=== PATIENT | male | born 1955 | race Caucasian/White ===

== ENCOUNTER 2016-10-23 11:39 | Emergency (ER) | payer OTHER ==
[~2016-10-23] VITALS: Ht 157.5 cm; Wt 78.0 kg
[2016-10-23 11:41] VITALS: Ht 157.5 cm; Wt 78.0 kg
--- NOTE | 2016-10-23 13:26 | RADRPT ---
PROCEDURE: XR Ankle. CLINICAL INDICATION: Left ankle series TECHNIQUE: AP, oblique, and lateral views of the left ankle were performed. COMPARISON: None available FINDINGS: Mild soft tissue swelling is noted at the lateral malleolus. No radiodense foreign bodies are presen t . No acute fractures or dislocations are present. Normal mineralization and joint spaces are noted. Mild calcaneal spur is noted at the Achilles tendon insertion. IMPRESSION: 1. No acute fractures or dislocations. 2. Soft tissue swelling of the lateral malleolus without radiodense foreign bodies. RPTAT: HDC .Rafaela Abdullahi MD, Date Time Electronically viewed and signed by .Rafaela Abdullahi MD, on 10/23/2016 13:25 .C/
--- NOTE | 2016-10-23 13:27 | RADRPT ---
PROCEDURE: Left foot series CLINICAL INDICATION: Pain status post trauma TECHNIQUE: AP oblique and lateral views COMPARISON: None available FINDINGS: No acute fractures or dislocations are present. Calcaneal spurs at the Achilles tendon insertion. Normal mineralization and joint spaces are noted. No evidence for radiodense foreign bodies. IMPRESSION: 1. No acute fractures or dislocations. 2. Calcaneal spur at the Achilles tendon insertion. RPTAT: HDC .Rafaela Abdullahi MD, Date Time Electronically viewed and signed by .Rafaela Abdullahi MD, on 10/23/2016 13:27 .C/
[2016-10-23] MEDS ORDERED: IBUP-1542 PO (13:32)
--- NOTE | 2016-10-23 13:37 | ERD ---
ER Documentation Chief Complaint Date/Time DATE: 10/23/16 TIME: 13:35 Chief Complaint LEFT ANKLE PAIN HPI 61-year-old male complains of left ankle pain after twisting it walking yesterday. He has some minor pain and swelling. He is concerned because he noticed some bruising around his foot today. He has no restricted range of motion weakness no redness or fevers. ROS All systems reviewed and are negative except as per history of present illness. 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 Head: Atraumatic Eyes: Normal Conjunctiva ENT: Normal External Ears, Nose and Mouth. Neck: Full range of motion..~ No meningismus. Resp: Clear to auscultation bilaterally Cardio: Regular rate and rhythm, no murmurs Abd: Soft, non tender, non distended. Normal bowel sounds Skin: No petechiae or rashes Back: No midline or flank tenderness Ext: No cyanosis, or edema. There is some mild tenderness and swelling around the left ankle joint. There is some ecchymosis on the bilateral lateral aspects of the foot as well as extending to the second through fifth metatarsal phalangeal joint area. There is no erythema or warmth or restricted range of motion appreciated. Neur: Awake and alert Psych: Normal Mood and Affect Procedures/MDM X-ray left ankle 3V Interpreted by me: Bones: [No fracture] Joints: No dislocation. Impression-normal left ankle x-ray X-ray left foot 3V Interpreted by me: Bones: [No fracture] Joints: [No dislocation] Foreign body: [None]. Impression-normal left foot x-ray Patient presents with signs and symptoms of left ankle sprain without signs or symptoms to suggest fracture, dislocation, tendon or neurologic deficits, ischemia or bacterial infection. We treated with instructions for ice and elevation at home and primary care and orthopedic follow-up for pain next week. He should return sooner for fevers, redness, new symptoms. Patient was placed in a left ankle Brice bandage and was neurovascular intact after the Brice bandage. Departure Diagnosis: Primary Impression: Ankle injury Encounter type: initial encounter Laterality: left Qualified Code: S99.912A - Injury of left ankle, initial encounter Condition: Stable Patient Instructions: What Are Ankle Sprains?, Treating Ankle Sprains Additional Instructions: X-ray read as normal. Likely sprain. Ice and elevate at home. See primary doctor orthopedist for pain next week. Return sooner for fevers, redness, new symptoms. GIANNI OSMAN MD Oct 23, 2016 13:37
== END 2016-10-23 14:20 | disposition home or self-care (01) ==
LOC: FTE 11:39
DX: S99.912A Unspecified injury of left ankle, initial encounter (principal); X58.XXXA Exposure to other specified factors, initial encounter; Y92.9 Unspecified place or not applicable; Z98.61 Coronary angioplasty status
CPT/HCPCS: 73610; 73630; Z7502